=== PATIENT | female | born 1975 | race Two or more races ===

== ENCOUNTER 2016-09-23 10:23 | Emergency (ER) | payer OTHER ==
[2016-09-23 10:32] VITALS: BP 121/76; PULSE 96; TEMP 98; BMI 35.1
[2016-09-23] MEDS ORDERED: diazePAM 5 MG TABLET ONE (11:53)
[2016-09-23] MEDS ORDERED: KETOROLAC TROMETHAMINE 60 MG/2 ML VIAL ONE (11:53)
[2016-09-23] MEDS ORDERED: KETOROLAC TROMETHAMINE 60 MG/2 ML VIAL IM ONE (11:57)
[2016-09-23] MEDS ORDERED: diazePAM 5 MG TABLET PO ONE (11:57)
--- NOTE | 2016-09-23 12:12 | PDOC ---
History of Present Illness - General Chief Complaint: Back Pain Stated Complaint: BACK PAIN Time Seen by Provider: 09/23/16 11:11 History Source: Patient - History of Present Illness Pain Location: reports: back Past History - Past Medical History Allergies/Adverse Reactions: Allergies Allergy/AdvReac Type Severity Reaction Status Date / Time No Known Allergies Allergy Verified 09/23/16 10:32 Home Medications: Ambulatory Orders Cyclobenzaprine HCl [Flexeril 10 mg] 10 mg PO TID PRN #9 tablet 09/23/16 Ibuprofen [Motrin -] 400 mg PO Q6H #30 tablet 09/23/16 Tramadol HCl 50 mg PO Q6H #15 tablet MDD 200 mg 09/23/16 Other medical history: denies - Psycho/Social/Smoking Cessation Hx Suicidal Ideation: No Smoking History: Never smoked Information on smoking cessation initiated: No Hx Alcohol Use: No Drug/Substance Use Hx: No Substance Use Type: None Review of Systems - Review of Systems Constitutional: No: Chills, Fever ABD/GI: No: Nausea, Vomiting : No: Dysuria Musculoskeletal: Yes: Back Pain. No: Muscle Weakness *Physical Exam - Vital Signs Last Vital Signs Temp Pulse Resp BP Pulse Ox 98 F 96 H 19 121/76 98 09/23/16 10:30 09/23/16 10:30 09/23/16 10:30 09/23/16 10:30 09/23/16 10:30 - Physical Exam General Appearance: Yes: Appropriately Dressed, Moderate Distress HEENT: positive: Normal Voice Neck: positive: Supple Respiratory/Chest: negative: Respiratory Distress Musculoskeletal: positive: Vertebral Tenderness (to). negative: CVA Tenderness Extremity: positive: Normal Inspection Integumentary: positive: Dry, Warm Neurologic: positive: Fully Oriented, Alert, Normal Mood/Affect ED Treatment Course - Medications Given in the ED: ED Medications Discontinued Medications Generic Name Dose Route Start Last Admin Trade Name Freq PRN Reason Stop Dose Admin Diazepam 5 mg 09/23/16 11:57 09/23/16 11:59 Valium - PO 09/23/16 11:58 5 mg ONCE ONE Administration Ketorolac Tromethamine 60 mg 09/23/16 11:57 09/23/16 11:59 Toradol Injection - IM 09/23/16 11:58 60 mg ONCE ONE Administration Medical Decision Making - Medical Decision Making 09/23/16 12:08 41 yo F, no sig pmhx, here w/ L lower back pain that started while house cleaning 3 days ago. Patient unable to describe pain. States it is constant and non-radiating, worse w/ any movement. Took Advil at home with no relief. No lower extremity weakness, saddle anesthesia or bowel or bladder incontinence , dysuria, nausea or vomiting. No history of kidney stones. See exam LBP No trauma No red flags at this time, i.e cauda equina or infxn -pain control in ED -reassess 09/23/16 12:22 09/23/16 13:04 Pain minimally improved per pt. Will dc w/ pain medication and PMD f/u if pain persists 09/23/16 13:26 *DC/Admit/Observation/Transfer Diagnosis at time of Disposition: Low back pain Qualifiers: Chronicity: acute Back pain laterality: left Sciatica presence: without sciatica Qualified Code(s): M54.5 - Low back pain - Discharge Dispostion Disposition: HOME Condition at time of disposition: Improved - Prescriptions Prescriptions: Cyclobenzaprine HCl [Flexeril 10 mg] 10 mg PO TID PRN #9 tablet PRN Reason: Back Pain Ibuprofen [Motrin -] 400 mg PO Q6H #30 tablet Tramadol HCl 50 mg PO Q6H #15 tablet MDD 200 mg - Referrals Referrals: Sadiq Calderon MD [Primary Care Provider] - - Patient Instructions Printed Discharge Instructions: Low Back Pain Additional Instructions: Take medications as directed and if pain persists, follow-up with your PMD - Post Discharge Activity Work/School Note: Back to Work
[2016-09-23] MEDS ORDERED: traMADol HCL 50 MG TABLET PO ONE (13:03)
[2016-09-23] MEDS ORDERED: traMADol HCL 50 MG TABLET ONE (13:05)
== END 2016-09-23 13:20 | disposition home or self-care (01) ==
LOC: JERFT 10:23
DX: M54.5 Low back pain (principal); X50.0XXA Overexertion from strenuous movement or load, initial encounter; X50.9XXA Other and unspecified overexertion or strenuous movements or postures, initial encounter; Y93.E9 Activity, other interior property and clothing maintenance; Y92.018 Other place in single-family (private) house as the place of occurrence of the external cause
CPT/HCPCS: 99281-25

== ENCOUNTER 2020-10-09 20:07 | Emergency (ER) | payer BC, OTHER ==
[2020-10-09 20:14] VITALS: BMI 33.6
[2020-10-09] MEDS ORDERED: FAMOTIDINE 20 MG/50 ML IVPB 20 MG/50 ML MG IVPB ONE ×2 (20:58→21:10)
[2020-10-09] MEDS ORDERED: ACETAMINOPHEN 1000 MG/100 ML VIAL (NON FORMULARY) IVPB ONE (20:58)
[2020-10-09] MEDS ORDERED: ACETAMINOPHEN INJECTION 100 ML IVPB ONE (21:10)
[2020-10-09 21:35] LABS: BASO % 0.3 % (0-2.0); EOS % 0.6 % (0-4.5); HEMATOCRIT 40.2 % (32.4-45.2); HEMOGLOBIN 13.2 GM/dL (10.7-15.3); LYMPH % 30.1 % (8-40); MCH 26.7 pg (25.7-33.7); MCHC 32.9 g/dl (32.0-36.0); MEAN CELL VOLUME 81.1 fl (80-96); MEAN PLT VOLUME 9.4 fl (7.5-11.1); MONO % 6.3 % (3.8-10.2); NEUT % 62.7 % (42.8-82.8); PLATELET COUNT 319 K/MM3 (134-434); RBC 4.95 M/mm3 (3.60-5.2); RDW 15.3 % (11.6-15.6); WHITE BLOOD COUNT 10.2 K/mm3 (4.0-10.0)
[2020-10-09 21:55] LABS: ALBUMIN 4.1 g/dl (3.4-5.0); BLOOD UREA NITROGEN 16.3 mg/dL (7-18); CALCIUM 9.3 mg/dL (8.5-10.1)
[2020-10-09 21:58] LABS: CREATININE 0.8 mg/dL (0.55-1.3)
[2020-10-09 22:00] LABS: BILIRUBIN,TOTAL 0.3 mg/dL (0.2-1); TOT PROT 7.7 g/dl (6.4-8.2)
[2020-10-09 22:07] LABS: PH,URINE 5.5 (5.0-8.0); URINE APPEARANCE CLEAR; URINE BILIRUBIN NEGATIVE (NEGATIVE); URINE COLOR YELLOW; URINE GLUCOSE (UA) NEGATIVE (NEGATIVE); URINE KETONE NEGATIVE (NEGATIVE); URINE LEUK ESTERASE NEGATIVE (NEGATIVE); URINE NITRITE NEGATIVE (NEGATIVE); URINE PROTEIN NEGATIVE (NEGATIVE); URINE UROBILINOGEN 0.2 mg/dL (0.2-1.0)
[2020-10-09 22:10] LABS: HCG,QUALITATIVE URINE Negative
[2020-10-09] MEDS ORDERED: ONDANSETRON 4 MG/2 ML VIAL IVPB ONE (22:11)
[2020-10-09] MEDS ORDERED: MAG HYDROX/AL HYDROX/SIMETH 30 ML UNIT-DOSE CUP PO ONE (22:15)
[2020-10-09] MEDS ORDERED: ONDANSETRON 4 MG/2 ML VIAL ONE (22:51)
[2020-10-09] MEDS ORDERED: MAG HYDROX/AL HYDROX/SIMETH 30 ML UNIT-DOSE CUP ONE (22:51)
[2020-10-09 23:50] VITALS: BP 120/71; PULSE 79; TEMP 98
== END 2020-10-09 23:50 | disposition home or self-care (01) ==
LOC: JER 20:07
PROC: 3E033NZ Introduction of Analgesics, Hypnotics, Sedatives into Peripheral Vein, Percutaneous Approach (ICD-10-PCS; principal; 2020-10-09)
PROC: 3E033GC Introduction of Other Therapeutic Substance into Peripheral Vein, Percutaneous Approach (ICD-10-PCS; 2020-10-09)
DX: R10.10 Upper abdominal pain, unspecified (principal); K80.20 Calculus of gallbladder without cholecystitis without obstruction
CPT/HCPCS: 36415; 76705-TC; 80053; 81003; 83690; 84703; 85025; 87086; 93005; 93010; 99285-25; J0131

== ENCOUNTER 2020-10-18 04:07 | Day surgery (SDC) | payer BC ==
[2020-10-17 12:00] VITALS: BMI 33.6
[2020-10-18] MEDS ORDERED: LIDOCAINE HCL/PF 2% SDV 5ML VIAL ONE (07:23)
[2020-10-18] MEDS ORDERED: fentaNYL CITRATE 250 MCG/5 ML VIAL ONE (07:23)
[2020-10-18] MEDS ORDERED: ONDANSETRON 4 MG/2 ML VIAL ONE (07:23)
[2020-10-18] MEDS ORDERED: DEXAMETHASONE SOD PHOSPHATE 4 MG/1 ML VIAL ONE (07:23)
[2020-10-18] MEDS ORDERED: SUCCINYLCHOLINE CHLORIDE 200 MG/10 ML SYRINGE ONE (07:24)
[2020-10-18] MEDS ORDERED: MIDAZOLAM HCL 2 MG/2 ML SINGLE DOSE VIAL ONE (07:24)
[2020-10-18] MEDS ORDERED: ROCURONIUM BROMIDE 100 MG/10 ML VIAL ONE (07:24)
[2020-10-18] MEDS ORDERED: PROPOFOL 20 ML ONE (07:24)
[2020-10-18] MEDS ORDERED: BUPIVACAINE HCL/PF 0.5% (5MG/ML) 10 ML VIAL ONE (07:30)
[2020-10-18] MEDS ORDERED: BUPIVACAINE HCL/PF 0.5% (5MG/ML) 10 ML VIAL NR ONE ×2 (07:46)
[2020-10-18] MEDS ORDERED: ceFAZolin SODIUM 1 GM VIAL ONE (07:59)
[2020-10-18] MEDS ORDERED: NEOSTIGMINE METHYLSULFATE 0.5 MG/ML - 10 ML MDV ONE (08:44)
[2020-10-18] MEDS ORDERED: GLYCOPYRROLATE 0.2 MG/1 ML VIAL ONE (08:44)
[2020-10-18] MEDS ORDERED: KETOROLAC TROMETHAMINE 30 MG/1 ML VIAL ONE (08:47)
[2020-10-18] MEDS ORDERED: ONDANSETRON 4 MG/2 ML VIAL IVPUSH PRN (09:40)
[2020-10-18] MEDS ORDERED: oxyCODONE HCL 5 MG TABLET PO PRN ×2 (09:40)
[2020-10-18] MEDS ORDERED: LACTATED RINGERS SOLUTION 1,000 ML IV SCH (09:45)
[2020-10-18] MEDS ORDERED: FAMOTIDINE 20 MG/50 ML IVPB 20 MG/50 ML MG IVPB ONE (13:43)
[2020-10-18 14:05] VITALS: BP 126/77; PULSE 83; TEMP 98.1
[2020-10-18] MEDS ORDERED: ACETAMINOPHEN 325 MG TABLET (FP) ONE (14:19)
[2020-10-18] MEDS ORDERED: ACETAMINOPHEN 325 MG TABLET (FP) PO ONE (14:20)
== END 2020-10-18 15:03 | disposition home or self-care (01) ==
LOC: JASU-SURG 04:07
PROVIDERS: ATTEND Surgery
PROC: 0FT44ZZ Resection of Gallbladder, Percutaneous Endoscopic Approach (ICD-10-PCS; principal; 2020-10-18 08:00)
DX: K80.10 Calculus of gallbladder with chronic cholecystitis without obstruction (principal)
CPT/HCPCS: 81025; 94760

== ENCOUNTER 2021-08-27 20:02 | Inpatient (IN) | payer BC ==
[2021-08-27] MEDS ORDERED: morphine CARPU-JECT 4 MG/1 ML DISP.SYRIN IVPUSH ONE (20:55)
[2021-08-27] MEDS ORDERED: ONDANSETRON 4 MG/2 ML VIAL IVPUSH ONE (20:55)
[2021-08-27] MEDS ORDERED: SODIUM CHLORIDE 1,000 ML IV STA (20:55)
[2021-08-27] MEDS ORDERED: ONDANSETRON 4 MG/2 ML VIAL ONE (21:01)
[2021-08-27] MEDS ORDERED: morphine SULFATE 4 MG/ML VIAL ONE (21:01)
[2021-08-27 21:28] LABS: BASO % 0.2 % (0-2.0); HEMATOCRIT 39.2 % (32.4-45.2); LYMPH % 12.9 % (8-40); MCH 27.2 pg (25.7-33.7); MCHC 33.2 g/dl (32.0-36.0); MEAN PLT VOLUME 9.1 fl (7.5-11.1); MONO % 6.2 % (3.8-10.2); NEUT % 80.7 % (42.8-82.8); PLATELET COUNT 296 10^3/uL (134-434); RBC 4.79 M/mm3 (3.60-5.2); RDW 14.8 % (11.6-15.6); WHITE BLOOD COUNT 12.9 K/mm3 (4.0-10.0)
[2021-08-27 21:35] LABS: INR 1.09 (0.83-1.09); PROTHROMBIN TIME (PATIENT) 12.6 SEC (9.7-13.0)
[2021-08-27 21:42] LABS: CHLORIDE 104 mmol/L (98-107); SODIUM 136 mmol/L (136-145)
[2021-08-27 21:45] LABS: ALBUMIN 4.1 g/dl (3.4-5.0); CALCIUM 9.3 mg/dL (8.5-10.1)
[2021-08-27 21:46] LABS: ANION GAP 7 MMOL/L (8-16); BLOOD UREA NITROGEN 18.8 mg/dL (7-18); CO2 25 mmol/L (21-32); GLUCOSE,RANDOM 129 mg/dL (74-106)
[2021-08-27 21:48] LABS: SGPT/ALT 21 U/L (13-61)
[2021-08-27 21:49] LABS: CREATININE 1.2 mg/dL (0.55-1.3); SGOT/AST 16 U/L (15-37)
[2021-08-27 21:50] LABS: BILIRUBIN,TOTAL 0.5 mg/dL (0.2-1); TOT PROT 7.5 g/dl (6.4-8.2)
[2021-08-27 21:51] LABS: ALK PHOS 80 U/L (45-117)
[2021-08-28] MEDS ORDERED: TAMSULOSIN HCL 0.4 MG CAP PO ONE (00:34)
[2021-08-28] MEDS ORDERED: KETOROLAC TROMETHAMINE 30 MG/1 ML VIAL IVPUSH ONE (00:34)
[2021-08-28] MEDS ORDERED: SODIUM CHLORIDE 1,000 ML IV STA (00:34)
[2021-08-28] MEDS ORDERED: KETOROLAC TROMETHAMINE 30 MG/1 ML VIAL ONE (00:45)
[2021-08-28] MEDS ORDERED: TAMSULOSIN HCL 0.4 MG CAP ONE (00:45)
[2021-08-28] MEDS ORDERED: METOCLOPRAMIDE HCL INJECTION 10 MG/2 ML VIAL IVPUSH ONE (00:53)
[2021-08-28] MEDS ORDERED: METOCLOPRAMIDE HCL INJECTION 10 MG/2 ML VIAL ONE (00:56)
[2021-08-28] MEDS ORDERED: SODIUM CHLORIDE 1,000 ML IV SCH (02:15)
[2021-08-28] MEDS ORDERED: ONDANSETRON 4 MG/2 ML VIAL IVPUSH PRN (02:18)
[2021-08-28 04:48] LABS: HCG,QUALITATIVE URINE Negative
[2021-08-28 05:45] LABS: URINE APPEARANCE CLEAR; URINE BILIRUBIN NEGATIVE (NEGATIVE); URINE COLOR YELLOW; URINE GLUCOSE (UA) NEGATIVE (NEGATIVE); URINE KETONE 15 mg/dl (NEGATIVE)
[2021-08-28 05:46] LABS: URINE NITRITE NEGATIVE (NEGATIVE); URINE PROTEIN NEGATIVE (NEGATIVE); URINE UROBILINOGEN 0.2 mg/dL (0.2-1.0)
[2021-08-28 05:47] LABS: URINE LEUK ESTERASE NEGATIVE (NEGATIVE)
[2021-08-28] MEDS ORDERED: DEXTROSE 5%-WATER - 50 ML IVPB ONE ×2 (06:25→09:28)
[2021-08-28] MEDS ORDERED: cefTRIAXone SODIUM 1 GM VIAL ONE ×2 (06:25→09:28)
[2021-08-28] MEDS: CEFTRIAXONE 1 GM in DEXTROSE 5%-WATER - 50 ML IVPB SCH (06:29)
[2021-08-28] MEDS: INSULIN SLIDING SCALE (NOVOLOG) 1 VIAL SQ SCH ×4 (06:34→21:34)
[2021-08-28 06:43] LABS: HEMATOCRIT 36.1 % (32.4-45.2); HEMOGLOBIN 11.8 GM/dL (10.7-15.3); MCHC 32.7 g/dl (32.0-36.0); MEAN CELL VOLUME 82.7 fl (80-96); MEAN PLT VOLUME 9.5 fl (7.5-11.1); PLATELET COUNT 255 10^3/uL (134-434); RBC 4.37 M/mm3 (3.60-5.2); RDW 14.7 % (11.6-15.6); WHITE BLOOD COUNT 11.1 K/mm3 (4.0-10.0)
[2021-08-28 06:47] LABS: BLOOD UREA NITROGEN 13.6 mg/dL (7-18); MAGNESIUM 2.1 mg/dL (1.8-2.4)
[2021-08-28 06:49] LABS: CREATININE 1.3 mg/dL (0.55-1.3); PHOSPHOROUS 3.9 mg/dL (2.5-4.9); URIC ACID 4.7 mg/dL (2.6-7.2)
[2021-08-28 06:51] LABS: BILIRUBIN,TOTAL 0.5 mg/dL (0.2-1); TOT PROT 6.1 g/dl (6.4-8.2)
[2021-08-28 06:52] VITALS: BMI 34.9
[2021-08-28 07:39] LABS: ALBUMIN 3.2 g/dl (3.4-5.0); CALCIUM 7.9 mg/dL (8.5-10.1)
[2021-08-28] MEDS: SODIUM CHLORIDE 1,000 ML IV SCH ×3 (08:13→20:19)
[2021-08-28] MEDS ORDERED: FLU VACC QS2021-22(6MOS UP)/PF 60 MCG/0.5 ML SYRINGE IM ONE (10:00)
[2021-08-28] MEDS ORDERED: ENOXAPARIN NA (PORCINE) 40 MG/0.4 ML DISP.SYRIN SQ SCH (10:00)
[2021-08-28] MEDS ORDERED: INSULIN (NOVOLOG) ASPART 100 UNITS/ML 10ML VIAL ONE (20:23)
[2021-08-29] MEDS: SODIUM CHLORIDE 1,000 ML IV SCH ×2 (02:59→10:22)
[2021-08-29] MEDS: INSULIN SLIDING SCALE (NOVOLOG) 1 VIAL SQ SCH ×4 (06:26→21:47)
[2021-08-29 07:33] LABS: HEMATOCRIT 32.7 % (32.4-45.2); HEMOGLOBIN 10.9 GM/dL (10.7-15.3); MCH 27.3 pg (25.7-33.7); MCHC 33.4 g/dl (32.0-36.0); MEAN CELL VOLUME 81.8 fl (80-96); MEAN PLT VOLUME 8.8 fl (7.5-11.1); PLATELET COUNT 209 10^3/uL (134-434); RBC 3.99 M/mm3 (3.60-5.2); RDW 15.1 % (11.6-15.6); WHITE BLOOD COUNT 6.3 K/mm3 (4.0-10.0)
[2021-08-29 07:58] LABS: CALCIUM 7.8 mg/dL (8.5-10.1)
[2021-08-29 07:59] LABS: BLOOD UREA NITROGEN 7.8 mg/dL (7-18)
[2021-08-29 08:02] LABS: CREATININE 0.8 mg/dL (0.55-1.3)
[2021-08-29] MEDS ORDERED: DEXTROSE 5%-WATER - 50 ML IVPB ONE (09:34)
[2021-08-29] MEDS ORDERED: cefTRIAXone SODIUM 1 GM VIAL ONE (09:34)
[2021-08-29] MEDS ORDERED: KETOROLAC TROMETHAMINE 30 MG/1 ML VIAL IVPUSH ONE (09:37)
[2021-08-29] MEDS: TAMSULOSIN HCL 0.4 MG CAP PO SCH (09:39)
[2021-08-29] MEDS: CEFTRIAXONE 1 GM in DEXTROSE 5%-WATER - 50 ML IVPB SCH (09:39)
[2021-08-29] MEDS ORDERED: INSULIN (NOVOLOG) ASPART 100 UNITS/ML 10ML VIAL ONE (21:11)
[2021-08-30] MEDS: INSULIN SLIDING SCALE (NOVOLOG) 1 VIAL SQ SCH ×2 (07:32→13:49)
[2021-08-30 08:45] LABS: HEMATOCRIT 33.3 % (32.4-45.2); HEMOGLOBIN 10.9 GM/dL (10.7-15.3); MCH 27.2 pg (25.7-33.7); MCHC 32.8 g/dl (32.0-36.0); MEAN PLT VOLUME 9.4 fl (7.5-11.1); PLATELET COUNT 240 10^3/uL (134-434); RBC 4.02 M/mm3 (3.60-5.2); RDW 14.8 % (11.6-15.6); WHITE BLOOD COUNT 6.7 K/mm3 (4.0-10.0)
[2021-08-30] MEDS: SODIUM CHLORIDE 1,000 ML IV SCH (08:58)
[2021-08-30 09:01] LABS: BLOOD UREA NITROGEN 7.5 mg/dL (7-18)
[2021-08-30] MEDS: TAMSULOSIN HCL 0.4 MG CAP PO SCH (09:04)
[2021-08-30 09:05] LABS: CREATININE 0.7 mg/dL (0.55-1.3)
[2021-08-30] MEDS ORDERED: cefTRIAXone SODIUM 1 GM VIAL ONE (09:06)
[2021-08-30] MEDS ORDERED: DEXTROSE 5%-WATER - 50 ML IVPB ONE (09:06)
[2021-08-30] MEDS: CEFTRIAXONE 1 GM in DEXTROSE 5%-WATER - 50 ML IVPB SCH (09:10)
[2021-08-30] MEDS ORDERED: MIDAZOLAM HCL 2 MG/2 ML SINGLE DOSE VIAL ONE (09:47)
[2021-08-30] MEDS ORDERED: DEXAMETHASONE SOD PHOSPHATE 4 MG/1 ML VIAL ONE (10:22)
[2021-08-30] MEDS ORDERED: ONDANSETRON 4 MG/2 ML VIAL IVPUSH PRN ×3 (10:55→11:00)
[2021-08-30] MEDS ORDERED: LACTATED RINGERS SOLUTION 1,000 ML IV SCH (11:00)
[2021-08-30] MEDS ORDERED: INSULIN SLIDING SCALE (NOVOLOG) 1 VIAL SQ SCH (11:00)
[2021-08-30] MEDS ORDERED: SODIUM CHLORIDE 1,000 ML IV SCH (11:00)
[2021-08-30 14:57] VITALS: BP 126/73; PULSE 83; TEMP 97.7
[2021-08-31] MEDS ORDERED: TAMSULOSIN HCL 0.4 MG CAP PO SCH (08:30)
[2021-08-31] MEDS ORDERED: CEFTRIAXONE 1 GM in DEXTROSE 5%-WATER - 50 ML IVPB SCH (10:00)
== END 2021-08-30 15:33 | disposition home or self-care (01) | DRG 661 ==
LOC: JER 20:02 → JERBED 08-28 00:54 → J8W 08-28 06:16
PROVIDERS: ADMIT Internal Medicine; ATTEND Internal Medicine
PROC: 0TC78ZZ Extirpation of Matter from Left Ureter, Via Natural or Artificial Opening Endoscopic (ICD-10-PCS; principal; 2021-08-30 09:30)
PROC: 0T778DZ Dilation of Left Ureter with Intraluminal Device, Via Natural or Artificial Opening Endoscopic (ICD-10-PCS; 2021-08-30 09:30)
DX: N13.2 Hydronephrosis with renal and ureteral calculous obstruction (principal); E66.9 Obesity, unspecified; Z68.35 Body mass index [BMI] 35.0-35.9, adult
CPT/HCPCS: 36415; 74177-TC; 76000-TC-FY; 76830-TC; 80048; 80053; 81003; 82962; 83036; 83605; 83735; 83970; 84100; 84484; 84550; 84703; 85025; 85027; 85610; 85730; 87040; 87086; 90686; 93005; 93010; 94760; 99285-25; C9803-CS; G0008; Q9967; U0003; U0005